=== PATIENT | male | born 1970 | race Caucasian/White ===

== ENCOUNTER 2018-09-13 07:45 | Emergency (ER) | payer BC ==
--- OUTSIDE RECORDS SUMMARY | 2018-09-13 07:53 | XMS REPORT | Clinical Summary ---
:1970 Author Organization [facility] Address [address] [place] [address] Care Team Providers Name Role Phone Asked, No Pcp Primary Care Provider Unavailable Allergies No Known Allergies Medications Medication Sig Dispensed Refills Start Date End Date Status carvedilol (COREG) 25 Take 25 mg by 0 Active MG tablet mouth 2 (two) times a day with meals. clonAZEPAM (KlonoPIN) Take 1 mg by 0 Active 1 MG tablet mouth 3 (three) times a day. HYDROcodone-acetaminop Take 1 tablet 0 Active hen (NORCO) 10-325 mg by mouth every per tablet 4 (four) hours. dextroamphetamine-amph Take 20 mg by 0 Active etamine (ADDERALL) 20 mouth 3 (three) mg tablet times a day. methocarbamol Take 750 mg by 0 Active (ROBAXIN) 750 MG mouth 3 (three) tablet times a day. 1-2 tablets three times a day atorvastatin (LIPITOR) Take 1 tablet 30 tablet 0 05/23/2018 06/22/2018 10 MG tablet (10 mg total) by mouth nightly for 30 days. losartan (COZAAR) 100 Take 1 tablet 30 tablet 0 05/24/2018 06/23/2018 MG tablet (100 mg total) by mouth daily for 30 days. aspirin (ECOTRIN) 81 Take 1 tablet 30 tablet 0 05/24/2018 06/23/2018 MG enteric coated (81 mg total) tablet by mouth daily for 30 days. ticagrelor (BRILINTA) Take 1 tablet 60 tablet 0 05/23/2018 06/22/2018 90 mg tablet (90 mg total) by mouth 2 (two) times a day for 30 days. Active Problems Problem Noted Date ST elevation myocardial infarction (STEMI) 05/21/2018 Encounters Date Type Specialty Care Team Description 05/21/2018 Surgery Procedural Ty, Waylon Diane Left heart cath w Cardiology Jr., MD lv gram cors [88667 (CPT)] 05/21/2018 - Hospital Encounter General Internal Mario Snider ST elevation 05/23/2018 Medicine Meagan ROMANO MD myocardial Waylon Bernard infarction (STEMI)Jr. MD unspecified artery (HCC) (Primary Dx) 05/21/2018 Documentation Intensive Care Summer Lovell NP-C 05/21/2018 Travel after 09/12/2017 Social History Tobacco Use Types Packs/Day Years Used Date Current Every Day Smoker Cigarettes Smokeless Tobacco: Current User Chew Alcohol Use Drinks/Week oz/Week Comments Yes Occasionally Sex Assigned at Date Recorded Not on file Job Start Date Occupation Industry Not on file Not on file Not on file Travel History Travel Start Travel End No recent travel history available. Last Filed Vital Signs Vital Sign Reading Time Taken Blood Pressure 157/88 05/23/2018 4:52 PM [facility] Pulse 94 05/23/2018 10:59 AM [employer] Temperature 36.5 C (97.7 F) 05/23/2018 10:59 AM [employer] Respiratory Rate 18 05/23/2018 10:59 AM [employer] Oxygen Saturation 99% 05/23/2018 11:35 AM [employer]OVER [employer] Inhaled Oxygen Concentration - - Weight - - Height 170.2 cm (5' 7") 05/21/2018 11:41 AM COVER [facility]ER Body Mass Index - - Plan of Treatment Health Maintenance Due Date Last Done Comments INFLUENZA VACCINE 11/01/2018 Implants Implanted Type Area Project Designer Device Shelf Model / Identifier Expiration Serial / Date Lot Device Vasclr Clsr Vasoactive Intstnl Peptd 6fr Angio-Seal - [id number] Cardiovascular N/A: 01/31/2019 [id number] / Implanted: Qty: 1 on 05/21/2018 by Waylon Bernard Jr., MD Implants N/A / [id number] Stent Coronary Syst Synergy (Mr) 3.00mm X 24mm - [id number] Coronary Stents N /A: BSC 02/06/2020 [id number] / Implanted: Qty: 1 on 05/21/2018 by Waylon Bernard Jr., MD N/A INTERVENTIONAL / CARDIOLOGY [id number] Procedures Procedure Name Priority Date/Time Associated Comments Diagnosis ESTIMATED GFR Routine 05/23/2018 6:15 Results for this AM [employer] procedure are in the results section. MAGNESIUM LEVEL Routine 05/23/2018 6:15 Results for this AM [employer] procedure are in the results section. IONIZED CALCIUM Routine 05/23/2018 6:15 Results for this AM [employer] procedure are in the results section. BASIC METABOLIC PANEL Routine 05/23/2018 6:15 Results for this AM [employer] procedure are in the results section. HC COMPLETE BLD COUNT Routine 05/23/2018 6:15 Results for this W/AUTO DIFF AM [employer] procedure are in the results section. LIPID PANEL Routine 2018 8:57 Results for this PM [employer] procedure are in the results section. TROPONIN Routine 2018 9:08 Results for this AM [employer] procedure are in the results section. ESTIMATED GFR Routine 2018 2:37 Results for this AM [employer] procedure are in the results section. MAGNESIUM LEVEL Routine 2018 2:37 Results for this AM [employer] procedure are in the results section. IONIZED CALCIUM Routine 2018 2:37 Results for this AM [facility] procedure are in the results section. BASIC METABOLIC PANEL Routine 2018 2:37 Results for this AM [facility] procedure are in the results section. HC COMPLETE BLD COUNT Routine 2018 2:37 Results for this W/AUTO DIFF AM [employer] procedure are in the results section. XR CHEST 1 VW PORTABLE Routine 2018 1:44 Results for this AM [employer] procedure are in the results section. ESTIMATED GFR Routine 05/21/2018 10:15 Results for this PM [facility] [facility] procedure are in the results section. BASIC METABOLIC PANEL Routine 05/21/2018 10:15 Results for this PM [facility] [facility] procedure are in the results section. ECG 12-LEAD STAT 05/21/2018 4:56 Results for this PM [facility] [facility] procedure are in the results section. TROPONIN Routine 05/21/2018 4:15 Results for this PM [facility] [facility] procedure are in the results section. LIPID PANEL Routine 05/21/2018 4:15 Results for this PM [facility] [facility] procedure are in the results section. HEMOGLOBIN A1C Routine 05/21/2018 4:15 Results for this PM [facility] [facility] procedure are in the results section. THYROID STIMULATING Routine 05/21/2018 4:15 Results for this HORMONE PM [employer] [facility] procedure are in the results section. CV LEFT HEART CATH LV Routine 05/21/2018 1:47 Results for this GRAM WITH CORS PM [facility]ER procedure are in the results section. XR CHEST 1 VW PORTABLE STAT 05/21/2018 12:42 Results for this PM [facility] procedure are in the results section. ECG 12-LEAD STAT 05/21/2018 12:30 Results for this PM [facility] procedure are in the results section. ESTIMATED GFR STAT 05/21/2018 12:07 Results for this PM [facility] [facility] procedure are in the results section. B NATRIURETIC PEPTIDE STAT 05/21/2018 12:07 Results for this PM [facility] procedure are in the results section. LIPASE LEVEL STAT 05/21/2018 12:07 Results for this PM [facility] [facility] procedure are in the results section. TROPONIN STAT 05/21/2018 12:07 Results for this PM [facility] procedure are in the results section. COMPREHENSIVE METABOLIC STAT 05/21/2018 12:07 Results for this PANEL PM [facility] procedure are in the results section. PARTIAL THROMBOPLASTIN STAT 05/21/2018 12:07 Results for this TIME (PTT) PM [facility] procedure are in the results section. PROTHROMBIN TIME WITH STAT 05/21/2018 12:07 Results for this INR PM [facility] procedure are in the results section. HC COMPLETE BLD COUNT STAT 05/21/2018 12:07 Results for this W/AUTO DIFF PM [facility] [facility] procedure are in the results section. ECG ED PRELIMINARY Routine 05/21/2018 12:01 Results for this INTERPRETATION PM [employer] [facility] procedure are in the results section. ECG ED PRELIMINARY Routine 05/21/2018 12:01 Results for this INTERPRETATION PM [employer] [facility] procedure are in the results section. MT CRITICAL CARE, E/M Routine 05/21/2018 12:01 Results for this 30-74 MINUTES PM [facility] procedure are in the results section. after 09/12/2017 Results Estimated GFR (05/23/2018 6:15 AM COVER MAKER)Only the most recent of4 resultswithin the time period is included. Estimated GFR >=90 mL/min/1.73 [place] [facility] Comment: m2 [place] [facility] G1 >=90 Normal or high G2 60-89Mildly decreased [id number] to moderately decreased C6q53-81Iffxmwjxww to severely decreased G4 15-29Severely decreased G5 <15Kidney failure The eGFR was calculated using the Chronic Kidney Disease Epidemiology Collaboration (CKD-EPI) equation. Interpretation is based on recommendations of the National Kidney Foundation-Kidney Disease Outcomes Quality Initiative (NKF-KDOQI) published in 2014. Specimen Plasma specimen Performing Organization Address City/State/Zipcode Phone Number [facility] DEPARTMENT OF PATHOLOGY [address] [place] [address] [facility] [id number] [place] [address] HOSPITAL CBC with platelet and differential (05/23/2018 6:15 AM COVER MAKER)Only the most recent of3 resultswithin the time period is included. WBC 7.0 4.5 - 11.0 k/uL [facility] RBC 3.98 (L) 4.40 - 6.00 [facility] m/uL [facility] HGB 12.6 (L) 14.0 - 18.0 [facility] g/dL [facility] HCT 36.1 (L) 41.0 - 51.0 % [facility] MCV 90.7 82.0 - 100.0 fL [facility] MCH 31.7 27.0 - 34.0 pg [facility] MCHC 34.9 31.0 - 37.0 [facility] g/dL [facility] RDW - SD 44.4 37.0 - 55.0 fL [facility] MPV 9.9 6.9 - 11.0 fL [facility] Platelet count 270 150 - 400 K/uL [facility] Nucleated RBC 0.00 /100 WBC [facility] Neutrophils 62.6 39.0 - 69.0 % [facility] Lymphocytes 27.0 25.0 - 45.0 % [facility] Monocytes 7.0 0.0 - 10.0 % [facility] Eosinophils 2.7 0.0 - 5.0 % [facility] Basophils 0.6 0.0 - 1.0 % [facility] Immature granulocytes 0.1 0.0 - 1.0 % [facility] Specimen Blood Performing Organization Address City/State/Zipcode Phone Number [facility] DEPARTMENT OF PATHOLOGY [address] [place] [address] [facility] [address] [place] [address] HOSPITAL Magnesium level (05/23/2018 6:15 AM COVER MAKER)Only the most recent of2 resultswithin the time period is included. Magnesium 2.1 1.6 - 2.6 mg/dL [facility] Specimen Plasma specimen Performing Organization Address City/[facility]/Zipcode Phone Number [facility] DEPARTMENT OF PATHOLOGY [address] [place] [address] Ionized calcium (05/23/2018 6:15 AM COVER MAKER)Only the most recent of2 resultswithin the time period is included. pH 7.44 [facility] Ionized calcium 1.10 (L) 1.11 - 1.32 [facility] mmol/L [facility] Specimen Plasma specimen Performing Organization Address City/[facility] Phone Number [facility] DEPARTMENT OF PATHOLOGY [address] [place] [address] Basic metabolic panel (05/23/2018 6:15 AM COVER MAKER)Only the most recent of3 resultswithin the time period is included. Sodium 145 135 - 148 mEq/L [facility] Potassium 3.7 3.5 - 5.0 mEq/L [facility] Chloride 109 98 - 112 mEq/L [facility] CO2 24 24 - 31 mEq/L [facility] Anion gap 12@ANIO 7 - 15 mEq/L [facility] BUN 9 6 - 20 mg/dL [facility] Creatinine 0.70 0.70 - 1.20 mg/dL [facility] Glucose 137 (H) 65 - 99 mg/dL [facility] Calcium 8.7 8.3 - 10.2 mg/dL [facility] Specimen Plasma specimen Performing Organization Address City/[facility]/Zipcode Phone Number [facility] DEPARTMENT OF PATHOLOGY [address] [place] [address] Lipid panel (2018 8:57 PM COVER MAKER)Only the most recent of2 resultswithin the time period is included. Cholesterol 166 0 - 199 [place] mg/dL [facility] Triglycerides 151 (H) 0 - 149 [place] mg/dL [facility] HDL cholesterol 31 (L) 40 - 99,999 [place] mg/dL [facility] LDL cholesterol 120 (H) 0 - 99 mg/dL [facility] Lipid panel See below [place] interpretation Comment: [facility] Total Cholesterol (mg/dL) [facility] <200 Desirable 140-456Tmbmiqemrm-fsqq >=240High Triglycerides (mg/dL) <150 Normal 354-238Sgoujjvqpz-hycr 200-499High >=500Very high HDL Cholesterol (mg/dL) <40Low (male) <50Low (female) LDL Cholesterol (mg/dL) <100 Optimal 100-129Near or above optimal 217-873Xbyxeczwjv-yyvl 160-189High >=190Very high Risk Catergories that modify LDL goals. Risk CatergoriesLDL goal (mg/dL) CHD and CHD risk equivalent<100 (10-year risk >20%) Multiple (2+) risk factors <130 (10-year risk=<20%) 0-1 risk factors <160 (<10-year risk) Defining levels of lipids in metabolic syndrome Triglycerides>=150 mg/dL HDL Cholesterol Men<40 mg/dL Women<50 mg/dL Non-HDL cholesterol is a second target for therapy in persons with high triglycerides (>=200 mg/dL) Specimen Plasma specimen Performing Organization Address City/State/Zipcode Phone Number [facility] DEPARTMENT OF PATHOLOGY [address] [place] [address] AND [facility] [address] [place] [address] HOSPITAL Troponin (2018 9:08 AM COVER MAKER)Only the most recent of3 resultswithin the time period is included. Troponin 4.18 (HH) 0.00 - 0.30 [facility] Comment: ng/mL [facility] 0.11 - 1.49 ng/mlMay indicate increased risk of acute coronary syndrome. >=1.5 ng/mlConsistent with acute myocardial infarction. The diagnostic value of a single normal or non-diagnostic result is questionable.Serial samples at 2-6 hour intervals are required to rule out acute myocardial injury. Final results called to and read back by ROSIBEL MARCUS 05/22/201810:49 [facility] Specimen Plasma specimen Performing Organization Address City/[facility]/Zipcode Phone Number [facility] DEPARTMENT OF PATHOLOGY [address] [place] [address] AND [facility] [address] [place] [address] HOSPITAL XR Chest 1 Vw Portable (2018 1:44 AM COVER MAKER)Only the most recent of2 resultswithin the time period is included. Specimen Narrative Performed At EXAMINATION:XR CHEST 1 VW PORTABLE RADIANT CLINICAL HISTORY: 48 years Male ICU ptstable with no clinical status changes [facility] COMPARISON:Most recent prior at [facility] IMPRESSION: 1.Cardiomediastinal silhouette is stable. There is mild prominence of the central vasculature. 2.Lungs are hypoinflated with bibasilar atelectasis. No new consolidation, effusion or pneumothorax. [facility]-[id number] Procedure Note Hm Interface, Radiology Results Incoming - 2018 8:51 AM COVER MAKER EXAMINATION: XR CHEST 1 VW PORTABLE CLINICAL HISTORY: 48 years Male ICU pt stable with no clinical status changes [facility] COMPARISON: Most recent prior at [facility] IMPRESSION: 1. Cardiomediastinal silhouette is stable. There is mild prominence of the central vasculature. 2. Lungs are hypoinflated with bibasilar atelectasis. No new consolidation, effusion or pneumothorax. [facility]-[id number] Performing Organization Address City/[facility]/Zipcode Phone Number [facility] [address] [place] [address] ECG 12 lead (05/21/2018 4:56 PM COVER MAKER)Only the most recent of2 resultswithin the time period is included. Ventricular rate 103 [facility] Atrial rate 103 [facility] MT interval 174 [facility] QRSD interval 102 [facility] QT interval 370 [facility] QTC interval 484 [facility] P axis 1 59 [facility] QRS axis 1 55 [facility] T wave axis 51 [facility]USE EKG impression Sinus tachycardia-T wave abnormality, consider anterolateral ischemia-Prolonged QT-Abnormal ECG-In automated comparison with ECG of 2018 12:30,-Vent. rate has increased BY47 BPM-ST no longer [facility]USE elevated in Anterolateral leads-Nonspecific T wave abnormality, worse in Inferior leads-T wave inversion now evident in Anterolateral leads-QT has lengthened- Specimen Narrative Performed At Performing Organization Address City/[facility]/Zipcode Phone Number [facility] MUSE [address] [place] [address] Thyroid stimulating hormone (05/21/2018 4:15 PM COVER MAKER) TSH 0.37 0.27 - 4.20 uIU/mL [facility] Specimen Blood Performing Organization Address City/[facility]/Zipcode Phone Number [facility] DEPARTMENT OF PATHOLOGY [id number] [place] [address] Hemoglobin A1c (05/21/2018 4:15 PM COVER MAKER) Hemoglobin A1C 6.6 (H) 4.0 - 6.0 % [facility] Comment: [facility] Less than 6% - Goal of therapy for Type II Diabetes Less than 7%-Goal of therapy for Type I Diabetes Less than 8%-Acceptable control for Type I or Type II Diabetes Greater than 8%-Unacceptable control; action indicated. ([id number]) Specimen Blood Performing Organization Address [facility] Phone Number [facility] DEPARTMENT OF PATHOLOGY [id number] [place] [address] Cv slab lifting supervisor procedure (05/21/2018 1:47 PM COVER MAKER) Specimen Narrative Performed At INDICATIONS: LUIS MCLAIN A 47-year-old gentleman who is a smoker and with family history of heart disease, was admitted to the slab lifting supervisor for acute coronary syndrome, ST elevation, seen in the Emergency Room on evolving EKGs. ANESTHESIA: Consisted of Versed, fentanyl and local anesthesia. ESTIMATED BLOOD LOSS: 5 mL SPECIMENS: None obtained. CLOSURE DEVICE ATTEMPTED: Is an Angio-Seal. COMPLICATIONS: None observed. DESCRIPTION OF THE PROCEDURE: We inserted a 6-Israeli sheath into right femoral artery.With the help of fluoroscopy, pressure monitoring, we cannulated left coronary system. Multiple views of this artery were obtained with hand injection.Right coronary catheter was used to cannulate the RCA.Multiple views of this artery were obtained with hand injection.LV angiogram was then later done in TIPTON and GREEK projections using 25 and 10 mL of contrast in TIPTON and GREEK projections. FINDINGS: Include the following:Anteroapical hypokinesia, ejection fraction on average is probably 45% to 50% looking like 45 to 40 in the TIPTON projection. CORONARY ANATOMY: Shows the following:The left main was patent.The circumflex was patent.The RCA was patent.The LAD in the mid segment had a totally occluded segment. Later on, more proximal to that we probably have identified after repeated injections after angioplasty a 40% to 50% lesion proximal to the total occlusion.LUPILLO flow was 1. We then gave this patient Angiomax and to cannulate the left coronary system, is proceeded to coronary intervention of the LAD.With some difficulty, we got a Whisper wire into the LAD.It kept going to a small branch proximally and with the support of a balloon, we were able to cross the LAD throughout subtotally, almost totally occluded lesion.I predilated it with a 2.5 balloon.It was difficult to move the balloon across initially, but finally, it got through. After that, we then advanced a stent.The stent was deployed 3 to 4 times to a diameter of 3.4.It was a 24-mm drug-eluting Synergy stent.Repeat injection showed the LUPILLO flow improving to 3 with zero residual stenosis.Right sheath injection as mentioned allowed us to attempt a closure device. CONCLUSION: Here is anteroapical hypokinesia, ejection fraction on average about 45% to 50%. Totally occluded left anterior descending coronary artery treated with coronary stenting and angioplasty using a 3.4 x 24 mm drug-eluting stent.Residual proximal left anterior descending coronary artery lesion about 40%. PLAN OF MANAGEMENT: Medical therapy, beta blockers, aspirin, nitrates, statins and dual antiplatelets. Performing Organization Address City/State/Zipcode Phone Number [facility] [address] [place] [address] Partial thromboplastin time, activated (05/21/2018 12:07 PM COVER MAKER) PTT 34.4 23.0 - 36.0 [facility] Comment: [facility] PTT therapeutic range for unfractionated heparin is HOSPITAL 61.0-112.0 seconds which corresponds to Anti-Xa 0.3-0.7 U/ml. Specimen Blood Performing Organization Address City/[facility]/Zipcode Phone Number [facility] DEPARTMENT OF PATHOLOGY [address] [place] [address] Prothrombin time with INR (05/21/2018 12:07 PM COVER MAKER) Prothrombin time 14.2 11.5 - 14.5 [facility] INR 1.1 [place] Comment: [facility] International Normalized Ratio (INR) is a [facility] monitoring tool for patients who are stable on oral anticoagulant therapy. An INR of 2.0-3.0 is suggested for deep vein thrombosis/pulmonary embolism. Specimen Blood Performing Organization Address City/[facility]ode Phone Number [facility] DEPARTMENT OF PATHOLOGY [address] [place] [address] B natriuretic peptide (05/21/2018 12:07 PM COVER MAKER) BNP 52 0 - 100 pg/mL [facility] Specimen Blood Performing Organization Address City/[facility]/Zipcode Phone Number [facility] DEPARTMENT OF PATHOLOGY [address] [place] [address] [place] [address] HOSPITAL Lipase level (05/21/2018 12:07 PM COVER MAKER) Lipase 22 13 - 60 U/L [facility] Specimen Plasma specimen Performing Organization Address City/[facility]/Zipcode Phone Number [facility] DEPARTMENT OF PATHOLOGY [address] [place] [address] Comprehensive metabolic panel (05/21/2018 12:07 PM COVER MAKER) Sodium 139 135 - 148 mEq/L [facility] Potassium 3.4 (L) 3.5 - 5.0 mEq/L [facility] Chloride 99 98 - 112 mEq/L [facility] CO2 30 24 - 31 mEq/L [facility] Anion gap 10@ANIO 7 - 15 mEq/L [facility] BUN 7 6 - 20 mg/dL [facility] Creatinine 0.83 0.70 - 1.20 [facility] mg/dL [facility] Glucose 146 (H) 65 - 99 mg/dL [facility] Calcium 9.3 8.3 - 10.2 mg/dL [facility] Protein 7.2 6.3 - 8.3 g/dL [facility] Albumin 4.2 3.5 - 5.0 g/dL [facility] A/G ratio 1.4 0.7 - 3.8 [facility] Alkaline phosphatase 74 40 - 129 U/L [facility] AST 16 10 - 50 U/L [facility] ALT 14 5 - 50 U/L [facility] Total bilirubin 0.3 0.2 - 1.2 mg/dL [facility] Specimen Plasma specimen Performing Organization Address City/State/Zipcode Phone Number [facility] DEPARTMENT OF PATHOLOGY [address] [place] [address] AND [facility] [address] ECG ED Preliminary Interpretation - Not an Order (05/21/2018 12:01 PM COVER MAKER)Only the most recent of2 resultswithin the time period is included. Narrative Performed At Mario Snider III, MD 05/22/20188:32 AM ECG ED Preliminary Interpretation - Not an Order Performed by: Gianfranco Garcia NP Authorized by: Mario Snider III, MD ECG reviewed by ED Physician in the absence of a blind lacer: yes Interpretation: Interpretation: abnormal Rate: ECG rate:70 ECG rate assessment: normal Rhythm: Rhythm: sinus rhythm Ectopy: Ectopy: none QRS: QRS axis:Normal QRS intervals:Normal ST segments: ST segments:Abnormal Elevation:V1, V2, V3, V4 and V5 CRITICAL CARE (05/21/2018 12:01 PM COVER MAKER) Narrative Performed At Mario Snider III, MD 05/22/20188:32 AM Critical Care Performed by: Gianfranco Garcia NP Authorized by: Mario Snider III, MD Critical care provider statement: Critical care time (minutes):45 Critical care was necessary to treat or prevent imminent or life-threatening deterioration of the following conditions:Cardiac failure Critical care was time spent personally by me on the following activities:Obtaining history from patient or surrogate, interpretation of cardiac output measurements, evaluation of patient's response to treatment, discussions with primary provider, pulse oximetry, re-evaluation of patient's condition, review of old charts, examination of patient, discussions with consultants, development of treatment plan with patient or surrogate, ordering and performing treatments and interventions, ordering and review of laboratory studies and ordering and review of radiographic studies after 09/12/2017 Advance Directives Patient has advance care planning documents on file. For more information, please contact:Yong Martines[address] [place] [address]
--- OUTSIDE RECORDS SUMMARY | 2018-09-13 07:54 | XMS REPORT ---
:1970 [facility] Address [address] [place] [address] Dr. Salter [address] [place] [id number] Care Team Providers Name Role Phone Unavailable Unavailable Unavailable Payers Payer Name Policy Type Policy Number Effective Date Expiration Date Problems This patient has no known problems. Allergies, Adverse Reactions, Alerts This patient has no known allergies or adverse reactions. Medications This patient has no known medications.
[2018-09-13 08:22] LABS: Protime INR 1.16
[2018-09-13 08:23] LABS: Absolute Monocytes 0.4 K/uL (0.1-1.3); Absolute Neutrophil 2.7 K/uL (1.8-8.0); Basophils % 0.9 % (0-1.3); Eosinophils % 5.8 % (0-4.4); Hematocrit 38.2 % (39.6-49.0); Lymphocytes % 36.4 % (15.3-44.8); MPV 7.6 fL (7.6-11.3); RBC Red Blood Cell Count 4.23 M/uL (4.33-5.43)
--- NOTE | 2018-09-13 08:29 | RAD REPORT ---
EXAM DESCRIPTION: CT - Head Brain Wo Cont - 09/13/2018 8:20 am CLINICAL HISTORY: Transient alteration of awareness COMPARISON: February 2017 TECHNIQUE: Axial 5 mm thick images of the head were obtained without IV contrast. All CT scans are performed using dose optimization technique as appropriate and may include automated exposure control or mA/KV adjustment according to patient size. FINDINGS: No intracranial hemorrhage, mass, edema or shift of mid-line structures. No acute infarcti on changes seen. No abnormal extra-axial fluid collections. Ventricles are normal. Mastoid air cells and visualized portions of the paranasal sinuses are clear. No acute bony findings. No changes seen from comparison. IMPRESSION: Negative non-contrast CT head examination.
[2018-09-13 08:38] LABS: ALT/SGPT 18 U/L (12-78); AST/SGOT 9 U/L (15-37); Albumin 3.2 g/dL (3.4-5.0); Alkaline Phosphatase 83 U/L (45-117); BUN Blood Urea Nitrogen 11 mg/dL (7-18); Bicarbonate 30 mmol/L (21-32); Bilirubin Direct < 0.1 mg/dL (0-0.2); Bilirubin Total 0.3 mg/dL (0.2-1.0); Glucose Level 150 mg/dL (74-106); Magnesium 2.1 mg/dL (1.8-2.4); NT PRO-BNP 64 pg/mL (<125); Potassium 3.9 mmol/L (3.5-5.1); Protein, Total 6.5 g/dL (6.4-8.2); Sodium Level 140 mmol/L (136-145); Troponin (Emerg Dept Use Only) < 0.02 ng/mL (0.0-0.045)
--- NOTE | 2018-09-13 09:16 | EKG ---
Test Date: 2018-09-13 Test Time: 08:00:04 Forensic Structural Engineer: GISSEL MEASUREMENT RESULTS: Intervals: Rate: 79 [place]: 180 QRSD: 96 QT: 410 QTc: 470 [place]: P: 68 NJ: 180 QRS: 93 T: 25 INTERPRETIVE STATEMENTS: Normal sinus rhythm Rightward axis Borderline ECG Compared to ECG 02/06/2017 12:40:37 Right-axis deviation now present Sinus tachycardia no longer present Electronically Signed On 09-13-18 09:16:08 CDT by Daniel Sage
[2018-09-13 09:32] LABS: Barbiturates NEGATIVE (NEGATIVE); Benzodiazepines NEGATIVE (NEGATIVE); Cocaine NEGATIVE (NEGATIVE); METHAMPHETAM NEGATIVE (NEGATIVE); Methadone NEGATIVE (NEGATIVE); Opiates POSITIVE (NEGATIVE); Phencyclidine NEGATIVE (NEGATIVE); THC Cannibis NEGATIVE (NEGATIVE)
--- NOTE | 2018-09-13 10:08 | EDPHYS ---
Physician Documentation [facility] Name: Chad Hermosillo Jr Age: 48 yrs Sex: Male : 1970 Arrival Date: 09/13/2018 Time: 07:47 Bed 19 Private MD: ED Physician Vince Webster HPI: 09/13 08:08 This 48 yrs old Male presents to ER via EMS with complaints of Altered Mental jr8 Status, FATIGUE. 08:08 The patient presents with disorientation. Onset: The symptoms/episode began/occurred jr8 acutely, today. Possible causes: unknown. Associated signs and symptoms: The patient has no apparent associated signs or symptoms. Current symptoms: In the emergency department the patient's symptoms have resolved, the patient is alert and fully oriented, has normal speech, has normal responsiveness, has no confusion. Patient's baseline: Neuro: alert and fully oriented, Motor: no deficits, Ambulation: walks without assistance, Speech: normal. The patient has not experienced similar symptoms in the past. The patient has not recently seen a physician. Patient stated that he woke up more fatigued and sleepy this morning. Got to work just fine. While at work co-workers noted that he seemed disoriented. Patient stated that he did not necessarily feel this way but was definitely more tired. Stated that he has not been wearing his CPAP at night because it is broke and just had recent stent back in May for [place] . Historical: - Allergies: 07:54 No Known Allergies; bp - Home Meds: 07:54 magnesium oxide 500 mg Oral cap [Active]; carvedilol 25 mg oral tab 1 tab 2 times per bp day [Active]; losartan 100 mg oral tab 1 tab once daily [Active]; clonazepam 1 mg Oral tab 1 tab 2 times per day [Active]; aspirin 81 mg Oral chew 1 tab once daily [Active]; BRILINTA 90 mg oral tab 1 tab 2 times per day [Active]; atorvastatin 10 mg oral tab 1 tab once daily [Active]; gabapentin 100 mg oral cap 1 caps twice a day [Active]; hydrocodone-acetaminophen 5-325 mg Oral tab 1 tab every 6 hours [Active]; - PMHx: 07:54 chronic back pain; Hypertension; bp - Immunization history:: Adult Immunizations. - Social history:: Smoking status: . - Ebola Screening: : Patient denies travel to an Ebola-affected area in the 21 days before illness onset. ROS: 08:13 Constitutional: Negative for fever, chills, and weight loss. jr8 08:13 Eyes: Negative for injury, pain, redness, and discharge, ENT: Negative for injury, pain, and discharge, Neck: Negative for injury, pain, and swelling, Cardiovascular: Negative for chest pain, palpitations, and edema, Respiratory: Negative for shortness of breath, cough, wheezing, and pleuritic chest pain, Abdomen/GI: Negative for abdominal pain, nausea, vomiting, diarrhea, and constipation, Back: Negative for injury and pain, MS/Extremity: Negative for injury and deformity, Skin: Negative for injury, rash, and discoloration. 08:13 Neuro: Positive for altered mental status, Negative for dizziness, gait disturbance, headache, hearing loss, loss of consciousness, numbness, seizure activity, speech changes, syncope, near syncope, tingling, tinnitus, tremor, visual changes, weakness. Exam: 08:13 Constitutional: This is a well developed, well nourished patient who is awake, alert, jr8 and in no acute distress. Eyes: Pupils equal round and reactive to light, extra-ocular motions intact. Lids and lashes normal. Conjunctiva and sclera are non-icteric and not injected. Cornea within normal limits. Periorbital areas with no swelling, redness, or edema. ENT: Nares patent. No nasal discharge, no septal abnormalities noted. Tympanic membranes are normal and external auditory canals are clear. Oropharynx with no redness, swelling, or masses, exudates, or evidence of obstruction, uvula midline. Mucous membranes moist. Neck: Trachea midline, no thyromegaly or masses palpated, and no cervical lymphadenopathy. Supple, full range of motion without nuchal rigidity, or vertebral point tenderness. No Meningismus. Cardiovascular: Regular rate and rhythm with a normal S1 and S2. No gallops, murmurs, or rubs. Normal PMI, no JVD. No pulse deficits. Respiratory: Lungs have equal breath sounds bilaterally, clear to auscultation and percussion. No rales, rhonchi or wheezes noted. No increased work of breathing, no retractions or nasal flaring. Abdomen/GI: Soft, non-tender, with normal bowel sounds. No distension or tympany. No guarding or rebound. No evidence of tenderness throughout. Back: No spinal tenderness. No costovertebral tenderness. Full range of motion. Skin: Warm, dry with normal turgor. Normal color with no rashes, no lesions, and no evidence of cellulitis. MS/ Extremity: Pulses equal, no cyanosis. Neurovascular intact. Full, normal range of motion. Neuro: Awake and alert, GCS 15, oriented to person, place, time, and situation. Cranial nerves II-XII grossly intact. Motor strength 5/5 in all extremities. Sensory grossly intact. Cerebellar exam normal. Normal gait. 08:13 ECG was reviewed by the Attending Physician. Vital Signs: 08:03 BP 160 / 97; Pulse 77; Resp 20; Temp 98.6; Pulse Ox 96% ; Weight 113.4 kg; Height 5 ft. bp 7 in. (170.18 cm); 09:00 BP 163 / 101; Pulse 76; Resp 18; Pulse Ox 99% ; bp 10:16 BP 157 / 99; Pulse 72; Resp 16; Temp 98; Pulse Ox 97% ; bp 08:03 Body Mass Index 39.16 (113.40 kg, 170.18 cm) bp NIH Stroke Scale Scores: 07:54 NIHSS Score: 3 bp MDM: 07:52 Patient medically screened. 8 10:04 Data reviewed: vital signs, nurses notes, lab test result(s), EKG, radiologic studies, [facility] CT scan, and as a result, I will discharge patient. Data interpreted: Pulse oximetry: on room air is 99 %. Interpretation: normal. Counseling: I had a detailed discussion with the patient and/or guardian regarding: the historical points, exam findings, and any diagnostic results supporting the discharge/admit diagnosis, lab results, radiology results, the need for outpatient follow up, a family practitioner, to return to the emergency department if symptoms worsen or persist or if there are any questions or concerns that arise at home. Response to treatment: the patient's symptoms have resolved after treatment. ED course: Patient feeling well. No acute findings or labs or imaging. Will send home to rest. Advised not to take Kratom supplement for now. Needs to f/u with PCP. To get his CPAP machine fixed. If worse to come back . 09/13 08:04 Order name: Basic Metabolic Panel jr8 09/13 08:04 Order name: CBC with Diff 09/13 08:04 Order name: LFT's; Complete Time: 08:40 09/13 08:04 Order name: Magnesium; Complete Time: 08:40 09/13 08:04 Order name: NT PRO-BNP; Complete Time: 08:40 8 09/13 08:04 Order name: PT-INR; Complete Time: 08:40 09/13 08:04 Order name: Troponin (emerg Dept Use Only); Complete Time: 08:40 09/13 08:04 Order name: EKG; Complete Time: 08:07 09/13 08:04 Order name: UDS; Complete Time: 10:05 09/13 08:04 Order name: ETOH Level; Complete Time: 08:59 09/13 08:04 Order name: CT Head Brain wo Cont; Complete Time: 08:40 09/13 08:07 Order name: Basic Metabolic Panel; Complete Time: 08:40 EDMS 09/13 08:07 Order name: CBC with Automated Diff; Complete Time: 08:40 EDMS 09/13 08:58 Order name: Urine Dipstick--Ancillary (enter results) ms 09/13 08:04 Order name: Cardiac monitoring; Complete Time: 08:13 09/13 08:04 Order name: EKG - Nurse/Tech; Complete Time: 08:08 09/13 08:04 Order name: IV Saline Lock; Complete Time: 08:08 09/13 08:04 Order name: Labs collected and sent; Complete Time: 08:11 09/13 08:04 Order name: O2 Per Protocol; Complete Time: 08:11 09/13 08:04 Order name: O2 Sat Monitoring; Complete Time: 08:11 EC:13 Rate is 79 beats/min. Rhythm is regular, Normal Sinus Rhythm. QRS [place] is Normal. TN jr8 interval is normal at 180 msec. QRS interval is normal at 96 msec. QT interval is normal at 410 msec. No Q waves. T waves are Normal. No ST changes noted. Clinical impression: Normal ECG and No evidence of ischemia. Interpreted by me. Reviewed by me. Administered Medications: No medications were administered Disposition: 06/13/19 10:07 Discharged to Home. Impression: Malaise and fatigue, Altered mental status, unspecified. - Condition is Stable. - Discharge Instructions: Confusion, Fatigue. - Medication Reconciliation Form, Thank You Letter, Antibiotic Education, Prescription Opioid Use form. - Work release form (09/13/18 11:32). ms - Follow up: Private Physician; When: 1 - 2 days; Reason: Recheck today's complaints, Continuance of care, Re-evaluation by your physician. - Problem is new. - Symptoms have improved. NIH Stroke Scale - NIH Stroke Score Date: 09/13/2018 Time: 07:54 Total Score = 3 1a. Level of Consciousness (LOC) - 1(Not Alert) 1b. Level of Consciousness (LOC) (Year \T\ Age) - 0(Both) 1c. LOC Commands (Open \T\ Closes Eyes/Buyers' Agent) - 0(Both) 2. Best Gaze (Lateral Gaze Paresis) - 0(Normal) 3. Visual Field Loss - 0(No visual loss) 4. Facial Palsy - 0(Normal) 5a. Left Arm: Motor (10-second hold) - 0(No drift) 5b. Right Arm: Motor (10-second hold) - 0(No drift) 6a. Left Leg: Motor (5-second hold - always test supine) - 0(No drift) 6b. Right Leg: Motor (5-second hold - always test supine) - 0(No drift) 7. Limb Ataxia (finger/nose \T\ heel/more - test with eyes open) - 0(Absent) 8. Sensory Loss (pinprick arms/legs/face) - 0(Normal) 9. Best Language: Aphasia (description/naming/reading) - 0(No aphasia) 10. Dysarthria (speech clarity - read or repeat words) - 1(Mild to Moderate) 11. Extinction and Inattention (visual/tactile/auditory/spatial/personal) - 1(Present) Initials: Addendum: 09/17/2018 08:26 Co-signature as Attending Physician, Vince Webster MD I agree with the [facility] assessment and plan of care. Signatures: Dispatcher [employer] Vince Chow MD MD [facility] Mateo Hugo PA PA jr8 Ena Mckeon RN RN tw2 Alena, Abilio, RN RN bp Kwok, Sonali ms Corrections: (The following items were deleted from the chart) 09/13 10:18 10:07 09/13/2018 10:07 Discharged to Home. Impression: Malaise and fatigue; bp Altered mental status, unspecified. Condition is Stable. Forms are Medication Reconciliation Form, Thank You Letter, Antibiotic Education, Prescription Opioid Use. Follow up: Private Physician; When: 1 - 2 days; Reason: Recheck today's complaints, Continuance of care, Re-evaluation by your physician. Problem is new. Symptoms have improved. jr8
--- NOTE | 2018-09-13 10:08 | ER ---
Nurse's Notes [facility] Name: Chad Hermosillo Jr Age: 48 yrs Sex: Male : 1970 Arrival Date: 09/13/2018 Time: 07:47 Bed 19 Private MD: Diagnosis: Malaise and fatigue;Altered mental status, unspecified Presentation: 09/13 07:48 Presenting complaint: EMS states: AMS AT WORK. Transition of care: patient was not bp received from another setting of care. Onset of symptoms is unknown. Risk Assessment: Do you want to hurt yourself or someone else? Patient reports no desire to harm self or others. Initial Sepsis Screen: Does the patient meet any 2 criteria? No. Patient's initial sepsis screen is negative. Does the patient have a suspected source of infection? No. Patient's initial sepsis screen is negative. Care prior to arrival: IV initiated. 20 GA, in the right antecubital area, Glucose check: 179. 07:48 Method Of Arrival: EMS: [facility] bp 07:48 Acuity: OSCAR 3 bp 07:49 Risk Assessment: Do you want to hurt yourself or someone else? Patient reports no tw2 desire to harm self or others. Initial Sepsis Screen: Does the patient meet any 2 criteria? No. Patient's initial sepsis screen is negative. Does the patient have a suspected source of infection? No. Patient's initial sepsis screen is negative. Care prior to arrival: None. Triage Assessment: 07:54 General: Appears in no apparent distress. comfortable, obese, Behavior is cooperative, bp appropriate for age, drowsy. Pain: Denies pain. EENT: No deficits noted. Neuro: Level of Consciousness is awake, alert, obeys commands, Oriented to person, place, time, situation, Appropriate for age. Cardiovascular: Reports. Respiratory: Airway is patent Respiratory effort is even, unlabored, Respiratory pattern is regular, symmetrical. GI: Abdomen is obese. : No signs and/or symptoms were reported regarding the genitourinary system. Derm: No deficits noted. Musculoskeletal: Circulation, motion, and sensation intact. Range of motion: intact in all extremities. Historical: - Allergies: 07:54 No Known Allergies; bp - Home Meds: 07:54 magnesium oxide 500 mg Oral cap [Active]; carvedilol 25 mg oral tab 1 tab 2 times per bp day [Active]; losartan 100 mg oral tab 1 tab once daily [Active]; clonazepam 1 mg Oral tab 1 tab 2 times per day [Active]; aspirin 81 mg Oral chew 1 tab once daily [Active]; BRILINTA 90 mg oral tab 1 tab 2 times per day [Active]; atorvastatin 10 mg oral tab 1 tab once daily [Active]; gabapentin 100 mg oral cap 1 caps twice a day [Active]; hydrocodone-acetaminophen 5-325 mg Oral tab 1 tab every 6 hours [Active]; - PMHx: 07:54 chronic back pain; Hypertension; bp - Immunization history:: Adult Immunizations. - Social history:: Smoking status: . - Ebola Screening: : Patient denies travel to an Ebola-affected area in the 21 days before illness onset. Screenin:48 Abuse screen: Denies threats or abuse. Nutritional screening: No deficits noted. tw2 Tuberculosis screening: No symptoms or risk factors identified. Fall Risk None identified. Assessment: 07:50 General: SEE TRIAGE NOTE. bp 09:00 Reassessment: ALL CURRENT ORDERS COMPLETED, RESULTS PENDING. bp 10:15 Reassessment: PT D/C HOME AMBULATORY WITH FAMILY, DX WITH AMS AND FATIGUE. PT AOx4, bp AMBULATORY WITH STEADY GAIT. Vital Signs: 08:03 BP 160 / 97; Pulse 77; Resp 20; Temp 98.6; Pulse Ox 96% ; Weight 113.4 kg; Height 5 ft. bp 7 in. (170.18 cm); 09:00 BP 163 / 101; Pulse 76; Resp 18; Pulse Ox 99% ; bp 10:16 BP 157 / 99; Pulse 72; Resp 16; Temp 98; Pulse Ox 97% ; bp 08:03 Body Mass Index 39.16 (113.40 kg, 170.18 cm) bp NIH Stroke Scale Scores: 07:54 NIHSS Score: 3 bp ED Course: 07:47 Patient arrived in ED. bp 07:47 Placed in gown. Call light in reach. Side rails up X2. media monitor on. Pulse ox on. tw2 NIBP on. 07:48 Arm band placed on. tw2 07:49 Triage completed. bp 07:50 Maintain EMS IV. Dressing intact. Good blood return noted. Site clean \T\ dry. Gauge \T\ bp site: 20 GAUGE R AC. 07:52 Mateo Hugo PA is PHCP. jr8 07:52 Vince Webster MD is Attending Physician. jr8 08:05 Abilio Carvajal, ROSIBEL is Primary Nurse. bp 08:07 EKG done, by military administrative technician. reviewed by Mateo FOX. sm3 08:22 CT Head Brain wo Cont In Process Unspecified. EDMS 10:06 CBC with Diff Sent. bp 10:06 Basic Metabolic Panel Sent. bp 10:18 No provider procedures requiring assistance completed. IV discontinued, intact, bp bleeding controlled, No redness/swelling at site. Pressure dressing applied. Administered Medications: No medications were administered Outcome: 10:07 Discharge ordered by . jr8 10:17 Discharged to home ambulatory, with family. bp 10:17 Condition: stable 10:17 Discharge instructions given to patient, Instructed on discharge instructions, follow up and referral plans. Demonstrated understanding of instructions, follow-up care. 10:18 Patient left the ED. bp NIH Stroke Scale - NIH Stroke Score Date: 09/13/2018 Time: 07:54 Total Score = 3 1a. Level of Consciousness (LOC) - 1(Not Alert) 1b. Level of Consciousness (LOC) (Year \T\ Age) - 0(Both) 1c. LOC Commands (Open \T\ Closes Eyes/Leather Stripping Machine Operator) - 0(Both) 2. Best Gaze (Lateral Gaze Paresis) - 0(Normal) 3. Visual Field Loss - 0(No visual loss) 4. Facial Palsy - 0(Normal) 5a. Left Arm: Motor (10-second hold) - 0(No drift) 5b. Right Arm: Motor (10-second hold) - 0(No drift) 6a. Left Leg: Motor (5-second hold - always test supine) - 0(No drift) 6b. Right Leg: Motor (5-second hold - always test supine) - 0(No drift) 7. Limb Ataxia (finger/nose \T\ heel/more - test with eyes open) - 0(Absent) 8. Sensory Loss (pinprick arms/legs/face) - 0(Normal) 9. Best Language: Aphasia (description/naming/reading) - 0(No aphasia) 10. Dysarthria (speech clarity - read or repeat words) - 1(Mild to Moderate) 11. Extinction and Inattention (visual/tactile/auditory/spatial/personal) - 1(Present) Initials: bp Signatures: Dispatcher [employer] Mateo Poon PA PA jr8 Ena Mckeon RN RN tw2 Abilio Carvajal RN RN bp Christina Jean 3
[2018-09-13 10:37] LABS: Urine Blood NEGATIVE (NEG); Urine Glucose NEGATIVE (NEG); Urine Protein NEGATIVE (NEG); Urine Specific Gravity 1.025 (1.005-1.030); Urine pH 5.5 (5.0-7.0)
== END 2018-09-13 10:18 | disposition home or self-care (01) ==
LOC: ER 07:45
DX: R41.82 Altered mental status, unspecified (principal); R53.83 Other fatigue; I10 Essential (primary) hypertension; Z79.82 Long term (current) use of aspirin
CPT/HCPCS: 36415; 70450; 80048; 80076; 80307; 80320; 81003; 83735; 83880; 84484; 85025; 85610; 93005; 99284

== ENCOUNTER 2023-02-04 23:40 | Emergency (ER) | payer SELFPAY ==
--- OUTSIDE RECORDS SUMMARY | 2023-02-05 00:18 | XMS REPORT | Continuity of Care Document ---
:1970 Author Organization [facility] t Address [address] [place] [address] [place] [id number] Care Team Providers Name Role Phone CYN RAMSEY Primary Care Physician Unavailable CRISTAL DUTTA Attending Clinician Unavailable Kareem Orozco NP Attending Clinician Doctor Unassigned, [place] Attending Clinician Unavailable JOE BOSTON Attending Clinician Unavailable JOE BOSTON Attending Clinician Unavailable Joe [place] MD Attending Clinician Yaritza Argueta Attending Clinician YARITZA KRISHNA Attending Clinician Unavailable Lab, Adc Fam Pob I Attending Clinician Unavailable Payers Payer Name Policy Type Policy Number Effective Date Expiration Date [facility] [id number] [id number] HALF-WAY 00:00:00 Problems Condition Condition Condition Status Onset Resolution Last Treating Co mments Source Name Details Category Date Date Treatment Clinician Date No known No known Disease Unive rs active active ity of problems problems [facility] Allergies, Adverse Reactions, Alerts Allergy Allergy Status Severity Reaction(s) Onset Inactive Treating Comm ents Source Name Type Date Date Clinician NO KNOWN Drug Active Univers ALLERGIE Class ity of [facility] Social History Social Habit Start Date Stop Date Quantity Comments Source Exposure to Not sure [facility] SARS-CoV-2 (event) Medica l Branch Sexual orientation Univer [facility] Sex Assigned At [birth year] Uni [facility]ity of [place] 00:00:00 00:00:00 Medical Branch Smoking Status Start Date Stop Date Source Tobacco smoking consumption [facility] Medical unknown Branch Medications Ordered Filled Start Stop Current Ordering Indication Dosage Frequency Signature Comments Components Source Medication Medication Date Date Medication? Clinician (SIG) Name Name losartan 2022-04 Yes 50mg 50 mg, Univers (COZAAR) 04-04 Oral, ity of tablet 50 14:00: DAILY, [place] mg 00 First dose Medical on Cassie Branch 02/02/23 at 0900, Until Discontinu ed, Routine hydralAZINE 2022-04- No 10mg 10 mg, Uni vers (APRESOLINE 04-04 Slow IV ity of ) injection 01:45: 01:50 [place] 10 [place] 00 :00 ONCE, 1 Medical dose, On Branch Mon02/01/23 at 2045, DANDRE hydroCHLORO 2022-04- No 12.5mg 12.5 mg, Univers thiazide 04-04 Oral, ity of (ESIDRIX) 00:30: 00:30 ONCE, 1 [place] tablet 12.5 00 :00 dose, On Medi luis antonio mg Mon Branch 02/01/23 at 1945, DANDRE losartan 50 2022-04- Yes [id number] 50mg Take 1 Univers mg tablet 04-03 tablet by ity of 00:00: 05:59 mouth in [place] 00 :00 the Medical morning Branch for 15 doses. hydroCHLORO 2022-04- Yes [id number] 12.5mg Take 0.5 Univers thiazide 25 04-03 tablets by i ty of mg tablet 00:00: 05:59 mouth [place] 00 :00 every Medical morning Branch for 15 doses. hydroCHLORO 2022-04- No [id number] 12.5mg Take 0.5 Univers thiazide 25 04-03 tablets by i ty of mg tablet 00:00: 00:00 mouth [place] 00 :00 every Medical morning Branch for 15 doses. Dose 2021-04 No Unknown 0-31 00:00: 00 Dose 2021-04 No Unknown 0-31 00:00: 00 clonazePAM 2021-0 Yes Univers 0.5 mg 2-04 ity of tablet 00:00: [place] 00 Medical Branch hydroCHLORO 0 Yes Univer s thiazide 2-04 ity of 12.5 mg 00:00: [place] capsule 00 Medical Branch clonazePAM 2-0 Yes Univers 0.5 mg 2-04 ity of tablet 00:00: [place] 00 Medical Branch hydroCHLORO 2-0 Yes Univer s thiazide 2-04 ity of 12.5 mg 00:00: [place] capsule 00 Medical Branch clonazePAM 2-0 Yes Univers 0.5 mg 2-04 ity of tablet 00:00: [place] 00 Medical Branch hydroCHLORO 2-0 Yes Univer s thiazide 2-04 ity of 12.5 mg 00:00: [place] capsule 00 Medical Branch clonazePAM 2-0 Yes Univers 0.5 mg 2-04 ity of tablet 00:00: [place] 00 Medical Branch hydroCHLORO 2-0 Yes Univer s thiazide 2-04 ity of 12.5 mg 00:00: [place] capsule Medical Branch clonazePAM 2-0 Yes Univers 0.5 mg 2-04 ity of tablet 00:00: [place] 00 Medical Branch hydroCHLORO 2-0 Yes Univer s thiazide 2-04 ity of 12.5 mg 00:00: [place] capsule Medical Branch clonazePAM 2-0 2023- No Univer s 0.5 mg 2-04 02-01 ity of tablet 00:00: 00:00 [place] 00 :00 Medical Branch hydroCHLORO 2-0 2023- No Unive rs thiazide 2-04 02-01 ity of 12.5 mg 00:00: 00:00 [place] capsule 00 :00 Medical Branch BRILINTA 90 2-0 Yes Univer s mg tablet 2-02 ity of 00:00: [place] 00 Medical Branch BRILINTA 90 2022-0 Yes Univer s mg tablet 2-02 ity of 00:00: [place] 00 Medical Branch BRILINTA 90 2022-0 Yes Univer s mg tablet 2-02 ity of 00:00: [place] 00 Medical Branch BRILINTA 90 2022-0 Yes Univer s mg tablet 2-02 ity of 00:00: [place] 00 Medical Branch BRILINTA 90 2022-0 Yes Univer s mg tablet 2-02 ity of 00:00: [place] 00 Medical Branch BRILINTA 90 2022-0 2023- No Unive rs mg tablet 2-02-01 ity of 00:00: 00:00 [place] 00 :00 Medical Branch clonazePAM 2022-0 Yes Univers 1 mg tablet 2-01 ity of 00:00: [place] 00 Medical Branch clonazePAM 2022-0 Yes Univers 1 mg tablet 2-01 ity of 00:00: [place] 00 Medical Branch metformin 2022-0 Yes Univers ER 500 mg 2-01 ity of 24 hr 00:00: [place] tablet 00 Medical Branch clonazePAM 2022-0 Yes Univers 1 mg tablet 2- ity of 00:00: [place] 00 Medical Branch metformin 2022-0 Yes Univers ER 500 mg 2- ity of 24 hr 00:00: [place] tablet 00 Medical Branch clonazePAM 2022-0 Yes Univers 1 mg tablet 2- ity of 00:00: [place] 00 Medical Branch metformin 2022-0 Yes Univers ER 500 mg 2-01 ity of 24 hr 00:00: [place] tablet 00 Medical Branch clonazePAM 2022-0 Yes Univers 1 mg tablet 2- ity of 00:00: [place] 00 Medical Branch metformin 2022-0 Yes Univers ER 500 mg 2- ity of 24 hr 00:00: [place] tablet 00 Medical Branch clonazePAM 2-0 Yes Univers 1 mg tablet 2- ity of 00:00: [place] 00 Medical Branch metformin 2022-0 Yes Univers ER 500 mg 2- ity of 24 hr 00:00: [place] tablet 00 Medical Branch metformin 2022-0 3- No Univers ER 500 mg 2-01 11- ity of 24 hr 00:00: 00:00 [place] tablet 00 :00 Medical Branch dextroamphe 2-0 Yes Univer s tamine-amph 1-28 ity of etamine 20 00:00: [place] mg tablet 00 Medical Branch HYDROcodone 2-0 Yes Univer s -acetaminop 1-28 ity of hen 10-325 00:00: [place] mg tablet 00 Medical Branch dextroamphe 2-0 Yes Univer s tamine-amph 1-28 ity of etamine 20 00:00: [place] mg tablet 00 Medical Branch HYDROcodone 2-0 Yes Univer s -acetaminop 1-28 ity of hen 10-325 00:00: [place] mg tablet 00 Medical Branch HYDROcodone 2-0 Yes Univer s -acetaminop 1-28 ity of hen 10-325 00:00: [place] mg tablet 00 Medical Branch dextroamphe 2022-0 Yes Univer s tamine-amph 1-28 ity of etamine 20 00:00: [place] mg tablet 00 Medical Branch HYDROcodone 2021-0 Yes Univer s -acetaminop 1-28 ity of hen 10-325 00:00: [place] mg tablet 00 Medical Branch dextroamphe 2021-0 Yes Univer s tamine-amph 1-28 ity of etamine 20 00:00: [place] mg tablet 00 Medical Branch HYDROcodone 2021-0 Yes Univer s -acetaminop 1-28 ity of hen 10-325 00:00: [place] mg tablet 00 Medical Branch dextroamphe 2021-0 Yes Univer s tamine-amph 1-28 ity of etamine 20 00:00: [place] mg tablet 00 Medical Branch HYDROcodone 2021-0 Yes Univer s -acetaminop 1-28 ity of hen 10-325 00:00: [place] mg tablet 00 Medical Branch dextroamphe 2021-0 3- No Unive rs tamine-amph 1-28 02-01 ity of etamine 20 00:00: 00:00 [place] mg tablet 00 :00 Medical Branch losartan 50 2020-1 Yes Univer s mg tablet 2-31 ity of 00:00: [place] 00 Medical Branch losartan 50 2020-1 Yes Univer s mg tablet 2-31 ity of 00:00: [place] 00 Medical Branch losartan 50 2020-1 Yes Univer s mg tablet 2-31 ity of 00:00: [place] 00 Medical Branch losartan 50 1-1 Yes Univer s mg tablet 2-31 ity of 00:00: [place] 00 Medical Branch losartan 50 2020-1 Yes Univer s mg tablet 2-31 ity of 00:00: [place] 00 Medical Branch losartan 50 2020-1 3- No Unive rs mg tablet 2-31 02-01 ity of 00:00: 00:00 [place] 00 :00 Medical Branch gabapentin 2021-1 Yes Univers 100 mg 2-30 ity of capsule 00:00: [place] 00 Medical Branch gabapentin 2021-1 Yes Univers 100 mg 2-30 ity of capsule 00:00: [place] 00 Medical Branch gabapentin 2021-1 Yes Univers 100 mg 2-30 ity of capsule 00:00: [place] 00 Medical Branch gabapentin 202-1 Yes Univers 100 mg 2-30 ity of capsule 00:00: [place] [address] Medical Branch gabapentin 2020-04 Yes Univers 100 mg 2-30 ity of capsule 00:00: [place] Medical Branch gabapentin 2020-04 Yes Univers 100 mg 2-30 ity of capsule 00:00: [place] Medical Branch atorvastati 2020-04 Yes Univer s n 10 mg 2-10 ity of tablet 00:00: [place] Medical Branch atorvastati 2020-04 Yes Univer s n 10 mg 2-10 ity of tablet 00:00: [place] Medical Branch atorvastati 2020-04 Yes Univer s n 10 mg 2-10 ity of tablet 00:00: [place] Medical Branch atorvastati 2020-04 Yes Univer s n 10 mg 2-10 ity of tablet 00:00: [place] Medical Branch atorvastati 2020-04 Yes Univer s n 10 mg 2-10 ity of tablet 00:00: [place] Medical Branch atorvastati 2020-04- No Unive rs n 10 mg 2-10 11-01 ity of tablet 00:00: 00:00 [place] 00 :00 Medical [place] Vital Signs Vital Name Observation Time Observation Value Comments Source Systolic blood 2023-02-02 04:25:00 180 mm[Hg] Univer sity of pressure [facility] Diastolic blood 2023-02-02 04:25:00 114 mm[Hg] Unive rsity of pressure [facility] Heart rate 2023-02-02 04:25:00 101 /min [facility] Respiratory rate 2023-02-02 04:25:00 28 /min [facility] Oxygen saturation in 2023-02-02 04:25:00 99 /min [facility] Arterial blood by [facility] Pulse oximetry [place] Body temperature 2023-02-02 02:22:00 36.78 [place] Body height 2023-02-01 22:07:00 170.2 cm [facility] Body weight 2023-02-01 22:07:00 120.566 kg [facility] BMI 2023-02-01 22:07:00 41.63 kg/m2 [facility] Heart Rate 2022-02-02 10:56:00 73.00 /min Respiratory Rate 2022-02-02 10:56:00 18.00 /min BP Systolic 2022-02-02 10:56:00 182 mm[Hg] BP Diastolic 2022-02-02 10:56:00 114 mm[Hg] Weight Measured 2022-02-02 10:56:00 250.00 pounds Height Measured 2022-02-02 10:56:00 67.00 inches Body Temperature 2022-02-02 10:56:00 98.20 degrees BP Systolic 2022-01-31 11:41:00 138 mm[Hg] BP Diastolic 2022-01-31 11:41:00 95 mm[Hg] Weight Measured 2022-01-31 11:41:00 252.00 pounds Height Measured 2022-01-31 11:41:00 67.00 inches Body Temperature 2022-01-31 11:41:00 97.80 degrees Heart Rate 2022-01-31 11:41:00 88.00 /min Respiratory Rate 2022-01-31 11:41:00 18.00 /min Procedures Procedure Date / Time Performing Clinician Source Performed AC PANEL 20 + LACTIC 2023-02-02 03:11:00 Cristal Dutta [facility] EKG-12 LEAD 2023-02-02 01:04:23 Pam [facility] TROPONIN I 2023-02-02 00:23:00 Marvinholley [facility] COMP. METABOLIC PANEL 2023-02-02 00:23:00 Kareem Orozco [facility] ([id number]) [facility] [place] ETHANOL 2023-02-02 00:23:00 Pam [facility] CBC WITH DIFF 2023-02-02 00:23:[address] [facility] N-TERMINAL PRO-BNP 2023-02-02 00:23:00 Kareem Orozco [facility] URINE DRUG (IMMUNOASSAY) 2023-02-01 23:36:00 Pam [facility] SCREEN W/O REFLEX POCT GLUCOSE(AGE 2023-02-01 23:00:00 Kareem Orozco [facility] >30DAYS) Medical Branch POCT GLUCOSE (AUTOMATED) 2023-02-01 22:43:00 Kareem Orozco [facility] CT HEAD WO CONTRAST 2023-02-01 22:32:00 [facility] CONSENT/REFUSAL FOR 2023-02-01 21:55:29 Doctor Unassigned, No [facility] Name Medical [place] EXTERNAL PROVIDER 2021-06-17 05:01:00 Doctor Unassigned, No Univ [facility] RECORDS Name Medical [place] EXTERNAL PROVIDER 2021-05-26 06:01:00 Doctor Unassigned, No [facility] RECORDS Name [facility] [place] AUTHORIZATION TO RELEASE 2021-05-10 06:01:00 Doctor Unassigned, No [facility] PHI TO [facility] Name Medical Branch REFERRAL- 2021-04-13 06:01:00 Doctor Unassigned, No [facility] REQUEST/RESPONSE Name [facility] [place] ASSIGNMENT OF BENEFITS 2020-10-07 14:46:51 Doctor Unassigned, No [facility] Name [facility] [place] Plan of Care Planned Activity Planned Date Details Comments Source Goal Plan of Care Note [code = 85818-6] Goal Plan of Care Note [code = 68802-9] Goal Plan of Care Note [code = 61297-1] Goal Plan of Care Note [code = 48348-3] Goal Plan of Care Note [code = 10080-9] Goal Plan of Care Note [code = 11301-9] Goal Plan of Care Note [code = 13907-4] Goal Plan of Care Note [code = 19280-1] Goal Plan of Care Note [code = 62068-8] Encounters Start End Encounter Admission Attending Care Care Encounter Source Date/Time Date/Time Type Type Clinicians Facility Department ID 2023-02-01 2023-02-01 Emergency X TRA SDSUREKHA ERT [id number] Univers 17:12:00 23:41:00 CRISTAL qureshi of [facility] 2023-02-01 2023-02-01 Emergency Kareem Orozco [facility] 1.2.8 40.114 [id number] Univers 17:12:00 23:41:00 Cristal Dutta [id number] ity of [place]7.2.686 [place] [facility] [id number] [place] [id number] [place] 2022-02-09 2022-02-09 Outpatient [facility] [id number] Oleg 08:06:32 08:06:32 [place] 2022-02-04 2022-02-04 Outpatient [facility] [id number] Oleg 16:54:38 16:54:38 [place] 2022-02-02 2022-02-02 Outpatient [facility] [id number] Oleg 14:37:28 14:37:28 [place] 2022-02-02 2022-02-02 Outpatient SFADOCS SFADOCS [id number] 2-4 00:00:00 00:00:00 Visit [id number] 2021-06-17 2021-06-17 Orders Doctor SUKHWINDER 1.2.840.114 [id number] Univers 00:00:00 00:00:00 Only Unassigned, RE 350.1.13.10 ity of [place] [facility] [id number] Fernando as [phone] [address] 2021-06-03 2021-06-03 Outpatient JOE DEY [facility] [id number] Univers 13:00:00 13:00:00 JOE BOSTON [facility] 2021-06-01 2021-06-01 Outpatient JOE DEY [facility] [id number] Univers 13:00:00 13:00:00 JOE BOSTON [facility] 2021-05-26 2021-05-26 Orders Doctor SUKHWINDER Murphy.2.840.114 [id number] Univers 00:00:00 00:00:00 Only Unassigned, RE 350.1.13.10 ity of [place] [facility] 4.2.7.2.686 Fernando as [id number] [address] 2021-05-11 2021-05-11 Telephone Ludy SDSUREKHA 1.2.840.114 [id number] Univers 00:00:00 00:00:00 Health system 350.1.13.10 ity of [place] 4.2.7.2.686 Fernando as NUHA?BLEA [phone] [address] OFF[address] [facility] 2021-05-10 2021-05-10 Outpatient R JOE BOSTON [facility] [id number] Univers 08:40:00 10:56:55 JOE BOSTON ity [facility] 2021-05-10 2021-05-10 Calvin Boston [facility] 1.2.840.114 [id number] Univers 00:00:00 00:00:00 (Out) Health system [id number] ity of [place] 4.2.7.2.686 Fernando as NUHA?BLEA [id number] [address] [facility] 2021-05-10 2021-05-10 Orders Doctor PRETTY 1.2.840.114 [id number] Univers 00:00:00 00:00:00 Only Unassigned, RE 350.1.13.10 ity of [place] [facility] 4.2.7.2.686 Fernando as [id number] [address] 2021-04-13 2021-04-13 Orders Doctor SUKHWINDER 1.2.840.114 [id number] Univers 00:00:00 00:00:00 Only Unassigned, RE 350.1.13.10 ity of [place] [facility] 4.2.7.2.686 Fernando as [id number] [address] 2020-10-09 2020-10-09 Calvin Krishna [facility] 1.2.840.114 [id number] Univers 00:00:00 00:00:00 (Out) Yaritza Alvarez 350.1.13.10 ity [place] Profess[place] [id number] [address] 2020-10-07 2020-10-07 Outpatient R ORLIN [facility] [id number] Univers 10:20:00 10:20:00 YARITZA ity of [facility] 2020-10-07 2020-10-07 Laboratory Lab, Adc Fam Pob [place] 1.2. 840.114 [id number] Univers 09:48:44 10:08:44 Only Orlin, Yaritza A [facility] 350.1.13.10 ity of [place] 4.2.7.2.686 Fernando as Professio [id number] [place] dical nal [address] [place] [address] 2020-10-07 2020-10-07 Orders Doctor SUKHWINDER 1.2.840.114 [id number] Univers 00:00:00 00:00:00 Only Unassigned, RE 350.1.13.10 ity of [place] [facility] 4.2.7.2.686 [place] as [id number] [address] Results Test Description Test Time Test Comments Results Result Comments Source POCT GLUCOSE(AGE >30DAYS) 2023-02-01 23:00:00 Test Item Value Reference Range Interpretation Comme nts POCT Glu (age>30days) (test code = 3342) 182 mg/dL 70-110 A Lab Interpretation (test code = 29464-1) [facility] 22:44:37 Test Item Value Reference Range Interpretation Comments POCT GLU (test code = 9550811653) 182 mg/dL 70-110 H Lab Interpretation (test code = Abnormal 77532-2) [facility]
[2023-02-05] MEDS ORDERED: LORAZEPAM 1 MG TABLET ONE (01:00)
[2023-02-05 02:15] LABS: Absolute Lymphocytes (CBC) 1.6 K/uL (0.7-4.9); Hematocrit 42.7 % (39.6-49.0); Lymphocytes % 16.4 % (15.3-44.8); MCV 88.8 fL (80-100); MPV 7.4 fL (7.6-11.3); Platelets 296 thou/uL (152-406)
[2023-02-05 02:22] LABS: Protime INR 1.39
[2023-02-05 02:38] LABS: Albumin 3.2 g/dL (3.4-5.0); Bilirubin Direct 0.1 mg/dL (0-0.2); Bilirubin Indirect, Calculated 0.5 mg/dL (0.2-0.8); Bilirubin Total 0.6 mg/dL (0.2-1.0); Troponin High Sensitivity 20.3 pg/mL (<58.9)
[2023-02-05 02:39] LABS: Magnesium 2.4 mg/dL (1.6-2.4); Potassium 3.5 mEq/L (3.5-5.1)
--- NOTE | 2023-02-05 03:17 | EDPHYS ---
Physician Documentation [facility] Name: Chad Hermosillo Jr Age: 52 yrs Sex: Male : 1970 Arrival Date: 02/04/2023 Time: 23:40 Bed 8 Private MD: ED Physician Solomon Ferro HPI: 02/05 00:25 This 52 yrs old Male presents to ER via Unassigned with complaints of sp4 Probable Seizure. 00:32 PMH - Historical: Home Meds: metformin 500 mg Oral tab 1 tab 2 times per day; sp4 carvedilol 25 mg Oral tab 1 tab 2 times per day; gabapentin 100 mg Oral cap 1 caps twice a day; amlodipine 5 mg tab 1 tab once daily; hydrochlorothiazide 12.5 mg Oral tab 1 tab once daily; BRILINTA 90 mg Oral tab 1 tab 2 times per day; aspirin 81 mg Oral chew 1 tab once daily; Suboxone 2-0.5 MG; clonazepam 1 mg Oral tab 1 tab 2 times per day PMHx: chronic back pain; Hypertension; Diabetes mellitus;. 03:20 Patient states he has history of chronic back pain and he has been taken some of the sp4 sleep medicines such as and prescribed a Xanax 2 mg bars several times a day until he abruptly discontinued 6 days ago.. Patient also states that he has history of uncontrolled hypertension and that he has not been taking any of his medications for quite some time. Patient also reports he has been taking hydrocodone 10 as needed pain that was prescribed by his primary care physician.. Historical: - Allergies: 00:37 No Known Allergies; vc1 - PMHx: 00:37 chronic back pain; diabetes mellitus; Hypertension; vc1 - PSHx: 00:37 None; vc1 - Immunization history:: Client reports having NOT received the Covid vaccine. - Social history:: Smoking status: Patient reports use of chewing tobacco. Patient uses street drugs, xanax, percocet. - Family history:: not pertinent. ROS: 03:20 Constitutional: Negative for fever, chills, and weight loss, positive acute seizure, sp4 elevated blood pressure, feeling unwell, positive benzodiazepine abuse 03:20 All other systems are negative, Exam: 03:20 Constitutional: This is a well developed, well nourished patient who is awake, alert, sp4 and in no acute distress. Head/Face: Normocephalic, atraumatic. Eyes: Pupils equal round and reactive to light, extra-ocular motions intact. Lids and lashes normal. Conjunctiva and sclera are not injected. Cornea within normal limits. Periorbital areas with no swelling, redness, or edema. ENT: Nares patent. No nasal discharge, no septal abnormalities noted. Tympanic membranes are normal and external auditory canals are clear. Oropharynx with no redness, swelling, or masses, exudates, or evidence of obstruction, uvula midline. Mucous membranes moist. Neck: Trachea midline, no thyromegaly or masses palpated, and no cervical lymphadenopathy. Supple, full range of motion without nuchal rigidity, or vertebral point tenderness. Chest/axilla: Normal chest wall appearance and motion. Nontender with no deformity. No lesions are appreciated. Cardiovascular: Regular rate and rhythm with a normal S1 and S2. No gallops, murmurs, or rubs. Normal PMI, no JVD. No pulse deficits. Respiratory: Lungs have equal breath sounds bilaterally, clear to auscultation and percussion. No rales, rhonchi or wheezes noted. No increased work of breathing, no retractions or nasal flaring. Abdomen/GI: Soft, non-tender, with normal bowel sounds. No distension or tympany. No guarding or rebound. No evidence of tenderness throughout. Back: No spinal tenderness. No costovertebral tenderness. Skin: Warm, dry with normal turgor. Normal color with no rashes, no lesions, and no evidence of cellulitis. MS/ Extremity: Pulses equal, no cyanosis. Neurovascular intact. Full, normal range of motion. Neuro: Awake and alert, GCS 15, oriented to person, place, time, and situation. Cranial nerves II-XII grossly intact. Motor strength 5/5 in all extremities. Sensory grossly intact. Psych: Awake, alert, with orientation to person, place and time. Behavior, mood, and affect are within normal limits 03:20 ECG was reviewed by the Attending Physician. EKG today at 2:06 AM there is normal sp4 sinus rhythm at a rate of 89, no ST elevation or depression, there is prolonged QT. Otherwise normal EKG Vital Signs: 00:43 Pulse 102; Resp 18; Temp 97.9; Pulse Ox 99% ; Weight 122.47 kg; Height 5 ft. 8 in. ; vc1 00:48 BP 189 / 107; vc1 02:24 BP 176 / 117; Pulse 92; Resp 14; Pulse Ox 100% ; vc1 00:43 Body Mass Index 41.05 (122.47 kg, 172.72 cm) vc1 Bracey Coma Score: 02:00 Eye Response: spontaneous(4). Motor Response: obeys commands(6). Verbal Response: vc1 oriented(5). Total: 15. MDM: 00:25 Patient medically screened. sp4 03:20 Differential diagnosis: drug overdose, cardiac arrhythmia, seizure, TIA. Data reviewed: sp4 vital signs, nurses notes, EMS record, old medical records, lab test result(s), EKG. Consideration of Admission/Observation Escalation of care including admission/observation considered. ED course: Patient will be prescribed today he is standard blood pressure medications, carvedilol, amlodipine, hydrochlorothiazide , patient will also be prescribed Librium with a taper course to prevent seizures at home. Patient was also advised to check into the rehab for benzodiazepine and opiate dependence. . 02/05 00:25 Order name: Basic Metabolic Panel; Complete Time: 03:06 4 02/05 00:25 Order name: CBC with Diff; [facility]25 Order name: LFT's; Complete Time: 03:4 02/05 00:25 Order name: Magnesium; [facility] 02/05 00:25 Order name: NT PRO-BNP; [facility] 02/05 00:25 Order name: PT-INR; Complete Time: 03: 4 02/05 00:25 Order name: Troponin HS; Complete [facility]: [facility]:06 [facility] 02/05 00:25 Order name: EKG; Complete [facility]: [facility]:26 [facility] 02/05 00:25 Order name: Cardiac monitoring; Complete Time: 02:24 [facility] 02/05 00:25 Order name: EKG - Nurse/Tech; Complete [facility]: 02:24 [facility] 02/05 00:25 Order name: IV Saline Lock; Complete [facility]: [facility]:24 [facility] 02/05 00:25 Order name: Labs collected and sent; Complete [facility]: [facility]:24 [facility] 02/05 00:25 Order name: O2 Per Protocol; Complete Time: sp4 02/05 00:25 Order name: O2 Sat Monitoring; Complete Time: sp4 EC:20 Rate is 89 beats/min. Rhythm is regular, Normal Sinus Rhythm. QRS [place] is Normal. [place] sp4 interval is normal. QRS interval is normal. QT interval is prolonged. No Q waves. T waves are Normal. No ST changes noted. Clinical impression: No evidence of ischemia. Interpreted by me. Administered Medications: 00:48 Drug: LORazepam PO 2 mg PO once Route: PO; vc1 02:24 Follow up: Response: No adverse reaction; Marked relief of symptoms vc1 03:28 Drug: cloNIDine PO 0.2 mg PO once Route: PO; vc1 03:29 Follow up: Response: Medication administered at discharge. vc1 03:28 Drug: Coreg PO 25 mg PO once; administer with food Route: PO; vc1 03:29 Follow up: Response: Medication administered at discharge. vc1 03:28 Drug: Hydrochlorothiazide PO 12.5 mg PO once Route: PO; vc1 03:28 Follow up: Response: Medication administered at discharge. vc1 03:28 Drug: amLODIPine PO 5 mg PO once Route: PO; vc1 03:28 Follow up: Response: Medication administered at discharge. vc1 Disposition Summary: 02/05/23 03:16 Discharge Ordered Notes: Location: Home sp4 Problem: new sp4 Symptoms: have improved sp4 Condition: Stable sp4 Diagnosis - Other seizures sp4 - Benzodiazepine withdrawal seizures, uncontrolled hypertension, benzodiazepine sp4 dependence, opiate dependence Followup: sp4 - With: Jeff Webster DO - When: 7 - 10 days - Reason: Recheck today's complaints Discharge Instructions: - Discharge Summary Sheet sp4 - Hypertension, Adult, [id number] sp4 Forms: - Patient Portal Instructions sp4 Prescriptions: - amlodipine 5 mg Oral tablet - take 1 tablet ORAL route daily daily; 90 tablet; Refills: 0, Product Selection sp4 Permitted - carvedilol 25 mg Oral tablet - take 1 tablet ORAL route 2 times per day must administer with a meal/food; 180 sp4 tablet; Refills: 0, Product Selection Permitted - chlordiazepoxide HCl 25 mg Oral capsule - take 1 capsule ORAL route every 12 hours Take 1 tab every 12 hours for 5 days , sp4 then take 1 tab daily for another 5 days; 15 capsule; Refills: 0, Product Selection Permitted - Hydrochlorothiazide 12.5 mg Oral capsule - take 1 tablet ORAL route once daily; 90 tablet; Refills: 0, Product Selection sp4 Permitted Signatures: Dispatcher [employer] Aleida Buckley RN RN vc1 Solomon Ferro MD MD sp4
--- NOTE | 2023-02-05 03:17 | ER ---
Nurse's Notes [facility] Name: Chad Hermosillo Jr Age: 52 yrs Sex: Male : 1970 Arrival Date: 02/04/2023 Time: 23:40 Bed 8 Private MD: Diagnosis: Other seizures;Benzodiazepine withdrawal seizures, uncontrolled hypertension, benzodiazepine dependence, opiate dependence Presentation: 02/04 23:40 Method Of Arrival: EMS: [facility] vc1 02/05 00:35 Chief complaint: Patient states: seizure says he had a seizure. Hasn't taken vc1 medications in 6 days. Coronavirus screen: Vaccine status: Patient reports being unvaccinated. At this time, the client does not indicate any symptoms associated with coronavirus-19. Ebola Screen: Patient negative for fever greater than or equal to 101.5 degrees Fahrenheit, and additional compatible Ebola Virus Disease symptoms Patient denies exposure to infectious person. Patient denies travel to an Ebola-affected area in the 21 days before illness onset. No symptoms or risks identified at this time. Risk Assessment: Do you want to hurt yourself or someone else? Patient reports no desire to harm self or others. Onset of symptoms was February 05, 2023. 00:35 Method Of Arrival: Ambulatory vc1 00:35 Acuity: OSCAR 3 vc1 00:48 Initial Sepsis Screen: Does the patient meet any 2 criteria? No. Patient's initial vc1 sepsis screen is negative. Does the patient have a suspected source of infection? No. Patient's initial sepsis screen is negative. 00:48 Chief complaint: EMS states: seizure, withdrawing from xanax. vc1 Historical: - Allergies: 00:37 No Known Allergies; vc1 - PMHx: 00:37 chronic back pain; diabetes mellitus; Hypertension; vc1 - PSHx: 00:37 None; vc1 - Immunization history:: Client reports having NOT received the Covid vaccine. - Social history:: Smoking status: Patient reports use of chewing tobacco. Patient uses street drugs, xanax, percocet. - Family history:: not pertinent. Screenin:24 Abuse screen: Denies threats or abuse. Nutritional screening: No deficits noted. vc1 Tuberculosis screening: No symptoms or risk factors identified. Assessment: 00:35 General: Appears in no apparent distress. uncomfortable, obese, Behavior is anxious. vc1 Pain: Denies pain. 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 Cardiovascular: No deficits noted. Respiratory: Airway is patent Respiratory effort is even, unlabored, Respiratory pattern is regular, symmetrical. GI: No deficits noted. No signs and/or symptoms were reported involving the gastrointestinal system. : No deficits noted. No signs and/or symptoms were reported regarding the genitourinary system. EENT: No deficits noted. No signs and/or symptoms were reported regarding the EENT system. Derm: No deficits noted. No signs and/or symptoms reported regarding the dermatologic system. 02:34 Reassessment: Patient and/or family updated on plan of care and expected duration. Pain vc1 level reassessed. Patient is alert, oriented x 3, equal unlabored respirations, skin warm/dry/pink. Patient states feeling better. Patient states symptoms have improved. 03:29 Reassessment: No changes from previously documented assessment. Patient and/or family vc1 updated on plan of care and expected duration. Pain level reassessed. Patient is alert, oriented x 3, equal unlabored respirations, skin warm/dry/pink. Vital Signs: 00:43 Pulse 102; Resp 18; Temp 97.9; Pulse Ox 99% ; Weight 122.47 kg; Height 5 ft. 8 in. ; vc1 00:48 BP 189 / 107; vc1 02:24 BP 176 / 117; Pulse 92; Resp 14; Pulse Ox 100% ; vc1 00:43 Body Mass Index 41.05 (122.47 kg, 172.72 cm) vc1 Deni Coma Score: 02:00 Eye Response: spontaneous(4). Motor Response: obeys commands(6). Verbal Response: vc1 oriented(5). Total: 15. ED Course: 02/04 23:43 Patient arrived in ED. [id number] 02/05 00:25 Solomon Ferro MD is Attending Physician. sp4 00:37 Triage completed. vc1 00:42 Arm band placed on right wrist. vc1 02:00 Patient has correct armband on for positive identification. Bed in low position. Call vc1 light in reach. Client placed on continuous cardiac and pulse oximetry monitoring. NIBP monitoring applied. 02:34 Calcote, Aleida, RN is Primary Nurse. vc1 03:14 Jeff Webster DO is Referral Physician. sp4 03:30 No provider procedures requiring assistance completed. IV discontinued, intact, vc1 bleeding controlled, No redness/swelling at site. Pressure dressing applied. Administered Medications: 00:48 Drug: LORazepam PO 2 mg PO once Route: PO; vc1 02:24 Follow up: Response: No adverse reaction; Marked relief of symptoms vc1 03:28 Drug: cloNIDine PO 0.2 mg PO once Route: PO; vc1 03:29 Follow up: Response: Medication administered at discharge. vc1 03:28 Drug: Coreg PO 25 mg PO once; administer with food Route: PO; vc1 03:29 Follow up: Response: Medication administered at discharge. vc1 03:28 Drug: Hydrochlorothiazide PO 12.5 mg PO once Route: PO; vc1 03:28 Follow up: Response: Medication administered at discharge. vc1 03:28 Drug: amLODIPine PO 5 mg PO once Route: PO; vc1 03:28 Follow up: Response: Medication administered at discharge. vc1 Medication: 03:30 VIS not applicable for this client. vc1 Outcome: 03:16 Discharge ordered by . sp4 03:30 Discharged to home ambulatory, with family, vc1 03:30 Condition: improved 03:30 Discharge instructions given to patient, Instructed on discharge instructions, follow up and referral plans. medication usage, Demonstrated understanding of instructions, follow-up care, medications, Prescriptions given X 4, 03:35 Patient left the ED. vc1 Signatures: Carli Mckeon [email or web address] Aleida Mccarthy RN RN vc1 Solomon Ferro MD MD sp4
[2023-02-05] MEDS ORDERED: carvediloL 6.25 MG TAB ONE (03:34)
[2023-02-05] MEDS ORDERED: AMLODIPINE 5 MG TAB ONE (03:34)
[2023-02-05] MEDS ORDERED: hydroCHLOROthiazide 25 MG TAB ONE (03:35)
[2023-02-05] MEDS ORDERED: cloNIDine HCL 0.1 MG TAB ONE (03:35)
[2023-02-05 04:08] VITALS: TEMP 97.9
[2023-02-05 04:11] VITALS: BP 176/117; O2SAT 100
--- NOTE | 2023-02-11 14:38 | EKG ---
Test Date: 2023-02-05 Test Time: 02:06:24 Business Administration Teacher: JAZMIN MEASUREMENT RESULTS: Intervals: Rate: 89 OR: 198 QRSD: 110 QT: 424 QTc: 515 [place]: P: 50 OR: 198 QRS: 39 T: 69 INTERPRETIVE STATEMENTS: Normal sinus rhythm Anterior infarct, age undetermined Prolonged QT Abnormal ECG Compared to ECG 01/31/2022 19:32:18 Prolonged QT interval now present Sinus tachycardia no longer present Myocardial infarct finding still present Electronically Signed On 02-11-23 14:19:08 UTILITY MAINTENANCE WORKER by Vic Camara
== END 2023-02-05 03:35 | disposition home or self-care (01) ==
LOC: ER 23:40
DX: G40.509 Epileptic seizures related to external causes, not intractable, without status epilepticus (principal); F11.20 Opioid dependence, uncomplicated; F13.20 Sedative, hypnotic or anxiolytic dependence, uncomplicated; I10 Essential (primary) hypertension
CPT/HCPCS: 36415; 80048; 80076; 83735; 83880; 84484; 85025; 85610; 93005; 99284